=== PATIENT | male | born 1955 | race Two or more races ===

== ENCOUNTER 2023-06-04 22:32 | Inpatient (IN) | payer OTHER ==
[~2023-06-04] VITALS: Ht 177.8 cm; Wt 110.5 kg
[2023-06-04 23:16] LABS: Basophils # (auto) 0.1 10 ^3/uL (0-0.2); Eosinophils # (auto) 0.2 10 ^3/uL (0-0.8); Eosinophils % (auto) 1.7 % (0.0-7.0); Hematocrit 35.6 % (41.0-53.0); Hemoglobin 12.3 g/dL (13.5-17.5); Lymphocytes # (auto) 1.6 10 ^3/uL (0.4-5.4); Lymphocytes % (auto) 17.5 % (10.0-50.0); Mean Corpuscular Hemoglobin 32.5 pg (28.0-32.0); Mean Corpuscular Hgb Conc. 34.4 g/dL (32.0-36.0); Mean Corpuscular Volume 94.4 fL (80.0-100.0); Monocytes # (auto) 0.7 10 ^3/uL (0-1.3); Monocytes % (auto) 7.7 % (0.0-12.0); Neutrophils # (auto) 6.5 10 ^3/uL (1.6-8.6); Neutrophils % (auto) 72.1 % (37.0-80.0); Nucleated Red Blood Cells % 0.1 %; Red Blood Cells 3.77 10^6/uL (4.5-5.90); Red Cell Distribution Width 13.6 % (11.8-14.3)
[2023-06-04 23:20] LABS: Calcium 8.4 mg/dL (8.5-10.1); INR 1.04 (0.9-1.15); Magnesium 2.4 mg/dL (1.6-2.6); Partial Thromboplastin Time 28.9 SEC (24.5-34.5); Potassium 4.2 mmol/L (3.5-5.1); Prothrombin Time 10.9 sec (9.3-11.8)
[2023-06-04 23:23] LABS: BUN/Creatinine Ratio 10.8 (10.0-20.0); Bilirubin, Total 0.3 mg/dL (0.2-1.0); Total Protein 6.9 g/dL (6.4-8.2)
[2023-06-04 23:30] VITALS: PULSE 79; RESP 19; O2SAT 96
[2023-06-05] VITALS (10 sets, daily range): BP systolic 123–143; BP diastolic 66–75; PULSE 67–82; RESP 14–22; TEMP 98.5–98.9; O2SAT 93–95
[2023-06-05] MEDS ORDERED: TERA2CAP45 PO (01:48)
[2023-06-05] MEDS ORDERED: FURO1TAB33 PO (01:48)
[2023-06-05] MEDS ORDERED: HYDR-4798 PO (01:48)
[2023-06-05] MEDS ORDERED: METO25TA5 PO (01:48)
[2023-06-05] MEDS ORDERED: AMLO1TAB22 PO (01:48)
[2023-06-05] MEDS ORDERED: TRAZ1TAB12 PO (01:48)
[2023-06-05] MEDS ORDERED: ONDANSETRON HCL 4 MG/2 ML VIAL IV PRN (02:00)
[2023-06-05] MEDS ORDERED: NITROGLYCERIN 0.4 MG SL TAB SL PRN (02:00)
[2023-06-05] MEDS ORDERED: ACETAMINOPHEN 325 MG TAB PO PRN (02:00)
[2023-06-05] MEDS ORDERED: ENOXAPARIN SOD 120 MG/0.8 ML SYRINGE SC ONE ×2 (04:30→22:00)
[2023-06-05] MEDS ORDERED: SODIUM CHLORIDE 0.9% 1,000 ML IV ONE (07:00)
[2023-06-05] MEDS ORDERED: SODIUM BICARBONATE 50ML VIAL 75 ML in D5W 5% 1,000 ML IV SCH (07:30)
[2023-06-05 07:35] LABS: BUN/Creatinine Ratio 10.6 (10.0-20.0); Calcium 8.8 mg/dL (8.5-10.1); Potassium 4.1 mmol/L (3.5-5.1)
[2023-06-05 07:36] LABS: Cholesterol 289 mg/dL (< 200); HDL Cholesterol 33 mg/dL (40-59); Triglycerides 620 mg/dL (< 150)
[2023-06-05] MEDS ORDERED: NITROGLYCERIN 50MG/250ML 250 ML IV SCH (07:45)
[2023-06-05] MEDS ORDERED: HEPARIN SODIUM (PORCINE) 5000 UNITS/ML 1ML VIAL IV ONE (07:45)
[2023-06-05] MEDS ORDERED: CLOPIDOGREL 300 MG TAB PO ONE (07:45)
[2023-06-05] MEDS ORDERED: HEPARIN DRIP/D5W 100UNITS/ML 250 ML IV SCH (07:45)
[2023-06-05 08:24] LABS: INR 1.07 (0.9-1.15); Partial Thromboplastin Time 36.2 SEC (24.5-34.5); Prothrombin Time 11.2 sec (9.3-11.8)
[2023-06-05 08:27] LABS: Urine Bacteria NONE SEEN /hpf (None Seen); Urine Blood 1+ /uL (Negative); Urine Clarity Clear (Clear); Urine Color Yellow (Yellow); Urine Protein, UAD 3+ (Negative); Urine Specific Gravity 1.012 (1.001-1.035); Urine Urobilinogen Normal (Negative); Urine WBC 2 /hpf (0 - 3); Urine pH 6.5 (5.0-8.0)
[2023-06-05 08:41] LABS: Protein, Urine 337.4 mg/dL (0.0-11.9); Urine Protein/Creatinine Ratio 5.11
[2023-06-05] MEDS ORDERED: FUROSEMIDE 20 MG TAB PO SCH (10:00)
[2023-06-05] MEDS ORDERED: ASPirin 81 mg TAB PO SCH (10:00)
[2023-06-05] MEDS: ASPirin 81 mg TAB PO SCH (10:35)
[2023-06-05] MEDS: ACETYLCYSTEINE ORAL for CIN 20%(200MG/ML) 4ML PO SCH ×2 (10:36→22:00)
[2023-06-05] MEDS: PANTOPRAZOLE 40 MG TAB PO SCH (10:36)
[2023-06-05] MEDS: amLODIPine BESYLATE 5 MG TAB PO SCH (10:37)
[2023-06-05] MEDS: METOPROLOL SUCCINATE XL 50 MG TAB PO SCH (10:39)
[2023-06-05] MEDS: HYDROcodone-ACET 5/325MG TAB PO PRN ×2 (12:35→19:04)
[2023-06-05] MEDS ORDERED: SODIUM CHLORIDE 0.9% 1,000 ML IV SCH (13:15)
[2023-06-05] MEDS ORDERED: FUROSEMIDE 100 MG/10ML VIAL IV ONE (14:30)
[2023-06-05 15:38] LABS: INR 1.09 (0.9-1.15); Partial Thromboplastin Time 60.4 SEC (24.5-34.5); Prothrombin Time 11.4 sec (9.3-11.8)
[2023-06-05] MEDS ORDERED: ANGIOMAX 250 MG VIAL IV ONE (15:38)
[2023-06-05] MEDS ORDERED: fentaNYL CITRATE 100 MCG/2 ML VL ONE (15:38)
[2023-06-05] MEDS ORDERED: SODIUM CHL 0.9% 0 ML ONE (15:39)
[2023-06-05] MEDS ORDERED: LIDOCAINE 2%HCL (LOCAL ANESTH.) INJ 20ML MDV ONE (15:39)
[2023-06-05] MEDS ORDERED: MIDAZOLAM HCL 2MG/2ML 2ml VIAL (1mg/ml) ONE (15:39)
[2023-06-05] MEDS ORDERED: IODIXANOL 320MG/ML 100ML BTL IV ONE (15:39)
[2023-06-05] MEDS ORDERED: HEPARIN SODIUM (PORCINE) 5000 UNITS/ML 1ML VIAL ONE (15:51)
[2023-06-05] MEDS ORDERED: VERAPAMIL 2.5MG/ML INJ 2ML VIAL IV ONE (15:51)
[2023-06-05] MEDS ORDERED: FUROSEMIDE 20 MG/2 ML VIAL IV ONE (16:45)
[2023-06-05] MEDS: SODIUM CHLORIDE 0.9% 1,000 ML IV SCH (17:30)
[2023-06-05] MEDS ORDERED: ATORVASTATIN 20 MG TAB PO SCH ×2 (22:00)
[2023-06-06] MEDS: NICOTINE 7MG/24HR TOPICAL PATCH TD SCH ×2 (00:51→10:29)
[2023-06-06] MEDS ORDERED: traZODone HCL 50 MG TAB PO PRN (02:15)
[2023-06-06] MEDS: SODIUM CHLORIDE 0.9% 1,000 ML IV SCH ×2 (02:45→10:32)
[2023-06-06] MEDS: MORPHINE SULFATE INJ 2 MG/ml SYRG IV PRN ×2 (03:03→03:42)
[2023-06-06] MEDS ORDERED: hydrALAZINE HCL 20 MG/ML VL IV PRN (04:15)
[2023-06-06] MEDS: NITROGLYCERIN 0.4 MG SL TAB SL PRN ×2 (04:28→04:35)
[2023-06-06 05:00] VITALS: BP 125/70; PULSE 85; RESP 19; TEMP 98.7; O2SAT 93
[2023-06-06 05:50] LABS: Basophils # (auto) 0.1 10 ^3/uL (0-0.2); Basophils % (auto) 0.6 % (0.0-2.0); Eosinophils # (auto) 0 10 ^3/uL (0-0.8); Eosinophils % (auto) 0.4 % (0.0-7.0); Hematocrit 36.9 % (41.0-53.0); Hemoglobin 12.8 g/dL (13.5-17.5); Lymphocytes # (auto) 1.4 10 ^3/uL (0.4-5.4); Lymphocytes % (auto) 13.1 % (10.0-50.0); Mean Corpuscular Hemoglobin 32.5 pg (28.0-32.0); Mean Corpuscular Hgb Conc. 34.7 g/dL (32.0-36.0); Mean Corpuscular Volume 93.5 fL (80.0-100.0); Monocytes % (auto) 9.8 % (0.0-12.0); Neutrophils # (auto) 8.1 10 ^3/uL (1.6-8.6); Neutrophils % (auto) 76.1 % (37.0-80.0); Nucleated Red Blood Cells % 0.1 %; Red Blood Cells 3.94 10^6/uL (4.5-5.90); Red Cell Distribution Width 13.7 % (11.8-14.3); White Blood Cell 10.6 10^3/uL (4.4-10.8)
[2023-06-06 06:12] LABS: Potassium 4.1 mmol/L (3.5-5.1)
[2023-06-06 06:15] LABS: Albumin 3.2 g/dL (3.4-5.0); BUN/Creatinine Ratio 10.3 (10.0-20.0); Calcium 8.8 mg/dL (8.5-10.1)
[2023-06-06 06:17] LABS: Bilirubin, Total 0.4 mg/dL (0.2-1.0); Total Protein 6.9 g/dL (6.4-8.2)
[2023-06-06 08:00] VITALS: BP 125/71; PULSE 72; PULSE 82; RESP 18; TEMP 37.1
[2023-06-06] MEDS: ASPirin 81 mg TAB PO SCH (10:27)
[2023-06-06] MEDS: ACETYLCYSTEINE ORAL for CIN 20%(200MG/ML) 4ML PO SCH (10:27)
[2023-06-06] MEDS: PANTOPRAZOLE 40 MG TAB PO SCH (10:27)
[2023-06-06] MEDS: METOPROLOL SUCCINATE XL 50 MG TAB PO SCH (10:28)
[2023-06-06] MEDS: amLODIPine BESYLATE 5 MG TAB PO SCH (10:30)
[2023-06-06 10:52] VITALS: BP 155/89; PULSE 85; RESP 17; TEMP 97.9; O2SAT 97
[2023-06-06 13:01] VITALS: BP 136/73; PULSE 85; RESP 16; TEMP 98.5; O2SAT 98
[2023-06-06 16:51] VITALS: BP 161/78; PULSE 89; RESP 17; TEMP 98.7; O2SAT 94
[2023-06-06] MEDS: HYDROcodone-ACET 5/325MG TAB PO PRN (18:19)
== END 2023-06-06 20:30 | disposition short-term general hospital (02) | DRG 280 ==
LOC: EDBD 22:32 → ER 22:32 → TELE 06-05 01:50 → TELE-CENTR 06-05 18:13
PROVIDERS: ADMIT Internal Medicine; ATTEND Internal Medicine
PROC: 4A023N7 Measurement of Cardiac Sampling and Pressure, Left Heart, Percutaneous Approach (ICD-10-PCS; principal; 2023-06-05)
PROC: B211YZZ Fluoroscopy of Multiple Coronary Arteries using Other Contrast (ICD-10-PCS; 2023-06-05)
PROC: B215YZZ Fluoroscopy of Left Heart using Other Contrast (ICD-10-PCS; 2023-06-05)
DX: I21.4 Non-ST elevation (NSTEMI) myocardial infarction (principal); I50.41 Acute combined systolic (congestive) and diastolic (congestive) heart failure; J96.00 Acute respiratory failure, unspecified whether with hypoxia or hypercapnia; N17.0 Acute kidney failure with tubular necrosis; I13.0 Hypertensive heart and chronic kidney disease with heart failure and stage 1 through stage 4 chronic kidney disease, or unspecified chronic kidney disease; N18.4 Chronic kidney disease, stage 4 (severe); I25.118 Atherosclerotic heart disease of native coronary artery with other forms of angina pectoris; E78.5 Hyperlipidemia, unspecified; D63.1 Anemia in chronic kidney disease; R32 Unspecified urinary incontinence; E11.22 Type 2 diabetes mellitus with diabetic chronic kidney disease; E66.9 Obesity, unspecified; F17.200 Nicotine dependence, unspecified, uncomplicated; M17.0 Bilateral primary osteoarthritis of knee; G89.29 Other chronic pain; I25.2 Old myocardial infarction; Z95.5 Presence of coronary angioplasty implant and graft; Z90.49 Acquired absence of other specified parts of digestive tract
CPT/HCPCS: 36415; 71045; 76775; 80048; 80053; 80061; 81001; 82306; 82570; 83036; 83735; 83880; 83935; 83970; 84100; 84156; 84300; 84443; 84484; 85025; 85379; 85610; 85730; 93005; 93306; 93458; 96375; 99152; G0378; J2250; Q9967